=== PATIENT | female | born 1990 | race Two or more races ===

== ENCOUNTER 2019-05-15 19:47 | Emergency (ER) | payer SELFPAY ==
[~2019-05-15] VITALS: Ht 160 cm; Wt 66.7 kg
--- NOTE | 2019-05-15 20:01 | NUR ---
ED Nurse Note: Pt ambulated to ED from home c/o 08/05 Right flank pain that radiates to her kidneys. Pt took 4 over the counter ANNIE pills in the past 4 hours. Pt is A&Ox4
[2019-05-15 20:05] VITALS: BP 105/75
[2019-05-15] MEDS ORDERED: Ketorolac 30mg Inj IV ONE ×2 (20:15)
--- NOTE | 2019-05-15 20:17 | Emergency Room Report ---
History of Present Illness General Chief Complaint: Abdominal Pain Source: Patient Present Illness HPI Patient presents with complaints of acute pain to the right flank mid abdominal area Reports the pain started abruptly Denies any chest pain or shortness of breath denies any vomiting Denies any recent travel or trauma Denies any radiation of the pain patient reports that she had previous kidney problems and liver problems from Workout medication she had taken Allergies: Coded Allergies: PSEUDOEPHEDRINE (Verified Allergy, Unknown, 05/15/19) Patient History Past Medical History: see triage record Pertinent Family History: none Last Menstrual Period: 05/11/19 Now: No : 1 Para: 0 Reviewed Nursing Documentation: PMH: Agreed Nursing Documentation-PMH Past Medical History: No Stated History Review of Systems All Other Systems: negative except mentioned in HPI Physical Exam Vital Signs Date Time Temp Pulse Resp B/P (MAP) Pulse Ox O2 Delivery O2 Flow Rate FiO2 05/15/19 19:51 98.1 107 18 107/70 (82) 97 Room Air Sp02 EP Interpretation: reviewed, normal General Appearance: mild distress - Appears uncomfortable Head: normocephalic, atraumatic Eyes: bilateral eye PERRL, bilateral eye EOMI ENT: hearing grossly normal, normal pharynx, TMs + canals normal, uvula midline Neck: full range of motion, supple, no meningismus, no bony tend Respiratory: lungs clear, normal breath sounds, no rhonchi, no respiratory distress, no retraction, no accessory muscle use Cardiovascular #1: normal peripheral pulses, regular rate, rhythm, no edema, no gallop, no JVD, no murmur Gastrointestinal: normal bowel sounds, non tender, soft, no mass, no organomegaly, non-distended, no guarding, no hernia, no pulsatile mass, no rebound Genitourinary: no CVA tenderness Musculoskeletal: normal inspection Neurologic: oriented x3, responsive, exterior work helper III-XII nml as tested, motor strength/ tone normal, sensory intact Psychiatric: mood/affect normal Skin: normal color, no rash, warm/dry, palpation normal Lymphatic: normal inspection, no adenopathy Medical Decision Making Diagnostic Impression: Primary Impression: Pyelonephritis ER Course With the patient's history and examination, multiple differentials considered, including but not limited to , ectopic , ovarian torsion, gastritis, cholecystitis, pancreatitis, appendicitis Patient's urine sample shows significant infectious pathology Given the discomfort imaging was also obtained does not show any obvious acute pathology Given the location of pain in the patient's findings likely early pyelonephritis patient otherwise is healthy tolerating oral intake and will have initial conservative outpatient trial Labs Test 05/15/19 20:00 05/15/19 20:12 Urine Color [place] Urine Appearance Cloudy Urine pH 7 (4.5-8.0) Urine Specific [place] 1.010 (1.005-1.035) Urine Protein 2+ (NEGATIVE) Urine Glucose (UA) Negative (NEGATIVE) Urine Ketones Negative (NEGATIVE) Urine Blood 4+ (NEGATIVE) Urine Nitrite Positive (NEGATIVE) Urine Bilirubin 2+ (NEGATIVE) Urine Ictotest Negative (NEGATIVE) Urine Urobilinogen 8 MG/DL (0.0-1.0) Urine Leukocyte Esterase 3+ (NEGATIVE) Urine RBC 5-10 /HPF (0 - 2) Urine WBC Tntc /HPF (0 - 2) Urine Squamous Epithelial Cells Few /LPF (NONE/OCC) Urine Bacteria Moderate /HPF (NONE) Urine HCG, Qualitative Negative (NEGATIVE) White Blood Count 9.9 K/UL (4.8-10.8) Red Blood Count 4.02 M/UL (4.20-5.40) Hemoglobin 13.7 G/DL (12.0-16.0) Hematocrit 37.0 % (37.0-47.0) Mean Corpuscular Volume 92 FL (80-99) Mean Corpuscular Hemoglobin 34.0 PG (27.0-31.0) Mean Corpuscular Hemoglobin Concent 36.9 G/DL (32.0-36.0) Red Cell Distribution Width 10.3 % (11.6-14.8) Platelet Count 233 K/UL (150-450) Mean Platelet Volume 6.8 FL (6.5-10.1) Neutrophils (%) (Auto) 60.0 % (45.0-75.0) Lymphocytes (%) (Auto) 29.1 % (20.0-45.0) Monocytes (%) (Auto) 7.7 % (1.0-10.0) Eosinophils (%) (Auto) 2.3 % (0.0-3.0) Basophils (%) (Auto) 0.9 % (0.0-2.0) Sodium Level 136 MMOL/L (136-145) Potassium Level 3.9 MMOL/L (3.5-5.1) Chloride Level 102 MMOL/L (98-107) Carbon Dioxide Level 26 MMOL/L (21-32) Anion Gap 8 mmol/L (5-15) Blood Urea Nitrogen 12 mg/dL (7-18) Creatinine 1.0 MG/DL (0.55-1.30) Estimat Glomerular Filtration Rate > 60 mL/min (>60) Glucose Level 107 MG/DL (74-106) Calcium Level 9.1 MG/DL (8.5-10.1) Total Bilirubin 0.3 MG/DL (0.2-1.0) Aspartate Amino Transf (AST/SGOT) 17 U/L (15-37) Alanine Aminotransferase (ALT/SGPT) 22 U/L (12-78) Alkaline Phosphatase 61 U/L (46-116) Total Protein 7.0 G/DL (6.4-8.2) Albumin 3.8 G/DL (3.4-5.0) Globulin 3.2 g/dL Albumin/Globulin Ratio 1.2 (1.0-2.7) Lipase 110 U/L (73-393) CT/MRI/US Diagnostic Results CT/MRI/US Diagnostic Results : Impression CT abdomen pelvisCT ABDOMEN + PELVIS Without Contrast: Contracted gallbladder. No calcified gallstones. Stomach is distended with ingested material which may be related to a recent meal. Normal appendix. No bowel obstruction or inflammation. Punctate nonobstructing left renal stones. No hydronephrosis or ureteral stone. Small splenule. Small fat-containing umbilical hernia. Bladder wall thickening is nonspecific. Please correlate with urinalysis to evaluate for cystitis. Mildly prominent mesenteric lymph nodes are nonspecific but may be reactive. Follicles in the ovaries. Last Vital Signs Date Time Temp Pulse Resp B/P (MAP) Pulse Ox O2 Delivery O2 Flow Rate FiO2 05/15/19 19:51 98.1 107 18 107/70 (82) 97 Room Air Status: improved Disposition: HOME, SELF-CARE Condition: Improved Scripts Ibuprofen* (MOTRIN*) 600 Mg Tablet 600 MG ORAL Q8H PRN for For Pain, #20 TAB 0 Refills Prov: Colby Jack DO 05/15/19 Phenazopyridine Hcl* (PYRIDIUM*) 100 Mg Tablet 100 MG ORAL THREE TIMES A DAY for 5 Days, TAB Prov: Colby Jack DO 05/15/19 Cephalexin* (KEFLEX*) 500 Mg Capsule 500 MG ORAL EVERY 6 HOURS for 7 Days, CAP Prov: Colby Jack DO 05/15/19 Additional Instructions: Patient is provided with the discharge instructions notified to follow up with primary doctor in the next 2-3 days otherwise return to the er with any worsening symptoms. Please note that this report is being documented using [employer] technology. This can lead to erroneous entry secondary to incorrect interpretation by the dictating instrument. Colby Jack DO May 15, 2019 20:17
[2019-05-15 20:34] LABS: APPEARANCE,URINE CLOUDY; BILIRUBIN, URINE 2+ (NEGATIVE); GLUCOSE, URINE (UA) NEGATIVE (NEGATIVE); KETONES,URINE NEGATIVE (NEGATIVE); LEUKOCYTE ESTERASE ,URINE 3+ (NEGATIVE); NITRITE,URINE POSITIVE (NEGATIVE); PH,URINE 7 (4.5-8.0); PROTEIN,URINE 2+ (NEGATIVE); UROBILINOGEN,URINE 8 MG/DL (0.0-1.0)
[2019-05-15 20:38] LABS: COLOR,URINE ORANGE
[2019-05-15 20:42] LABS: BASOPHILS % (AUTO) 0.9 % (0.0-2.0); EOSINOPHILS % (AUTO) 2.3 % (0.0-3.0); HEMOGLOBIN 13.7 G/DL (12.0-16.0); LYMPHOCYTES % (AUTO) 29.1 % (20.0-45.0); MEAN CORPUSCULAR VOLUME 92 FL (80-99); MONOCYTES % (AUTO) 7.7 % (1.0-10.0); PLATELET COUNT 233 K/UL (150-450); RED BLOOD COUNT 4.02 M/UL (4.20-5.40); RED CELL DISTRIBUTION WIDTH 10.3 % (11.6-14.8); WHITE BLOOD COUNT 9.9 K/UL (4.8-10.8)
[2019-05-15] MEDS ORDERED: cefTRIAXone 1 GM in NS 55 ML IVPB ONE (20:45)
--- NOTE | 2019-05-15 20:50 | NUR ---
ED Nurse Note: Pt off the floor to CT
[2019-05-15 20:59] LABS: ANION GAP 8 mmol/L (5-15); BLOOD UREA NITROGEN 12 mg/dL (7-18); CALCIUM 9.1 MG/DL (8.5-10.1); CARBON DIOXIDE 26 MMOL/L (21-32); CHLORIDE 102 MMOL/L (98-107); POTASSIUM 3.9 MMOL/L (3.5-5.1); SODIUM 136 MMOL/L (136-145)
[2019-05-15 21:03] LABS: ALANINE AMINOTRANSFERASE 22 U/L (12-78); ALBUMIN 3.8 G/DL (3.4-5.0); ALBUMIN/GLOBULIN RATIO 1.2 (1.0-2.7); ALKALINE PHOSPHATASE 61 U/L (46-116); ASPARTATE AMINO TRANSFERASE 17 U/L (15-37); BILIRUBIN,TOTAL 0.3 MG/DL (0.2-1.0)
[2019-05-15] MEDS ORDERED: CEPHALEXIN500 MG ORAL (21:35)
[2019-05-15] MEDS ORDERED: PHENAZOPYRIDIN100 MG ORAL (21:35)
[2019-05-15] MEDS ORDERED: IBUPROFEN600 MG ORAL (21:35)
--- NOTE | 2019-05-15 22:19 | Diagnostic Imaging Report ---
CT ABDOMEN + PELVIS Without Contrast: Contracted gallbladder. No calcified gallstones. Stomach is distended with ingested material which may be related to a recent meal. Normal appendix. No bowel obstruction or inflammation. Punctate nonobstructing left renal stones. No hydronephrosis or ureteral stone. Small splenule. Small fat-containing umbilical hernia. Bladder wall thickening is nonspecific. Please correlate with urinalysis to evaluate for cystitis. Mildly prominent mesenteric lymph nodes are nonspecific but may be reactive. Follicles in the ovaries.
--- NOTE | 2019-05-15 22:26 | NUR ---
ER DISCHARGE NOTE: Patient is cleared to be discharged per ERMD, pt is aox4, on room air, with stable vital signs. pt was given dc and prescription instructions, pt was able to verbalize understanding, pt id band and iv site removed without complications. pt is able to ambulate with steady gait. pt took all belongings.
[2019-05-15 22:27] VITALS: BP 139/86
== END 2019-05-15 22:27 | disposition home or self-care (01) ==
LOC: EMR 20:27
DX: N12 Tubulo-interstitial nephritis, not specified as acute or chronic (principal); Z88.8 Allergy status to other drugs, medicaments and biological substances
CPT/HCPCS: 36415; 74176; 80053; 81003; 81025; 83690; 85025; 87086; 87181; 96361; 96365; 96375; 99284; J0696; J1885

== ENCOUNTER 2019-08-05 13:56 | Emergency (ER) | payer SELFPAY ==
[~2019-08-05] VITALS: Ht 160 cm; Wt 68.0 kg
[~2019-08-05 13:56] MED LIST: CEPHALEXIN500 MG ORAL; IBUPROFEN600 MG ORAL; PHENAZOPYRIDIN100 MG ORAL
[2019-08-05] MEDS ORDERED: NKM (14:06)
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
[2019-08-05 14:30] VITALS: BP 113/70
[2019-08-05] MEDS ORDERED: Tetanus/Diptheria/Pertussis IM ONE (14:30)
[2019-08-05] MEDS ORDERED: HYDROcodone/Acetamin 5/325 tab PO ONE (14:30)
--- NOTE | 2019-08-05 14:54 | NUR ---
ED Nurse Note: Ct complete
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
[2019-08-05] MEDS ORDERED: Lidocaine 1% Plain 30 ml INJ ONE (15:45)
[2019-08-05] MEDS ORDERED: Neosporin Oint Ud Pkt TOPIC ONE ×2 (16:14→16:30)
[2019-08-05] MEDS ORDERED: ACETAMINOPHEN-1 EAC1 ORAL (16:17)
[2019-08-05] MEDS ORDERED: BACITRACIN15 GM TOPIC (16:17)
[2019-08-05 16:20] VITALS: BP 124/68
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
== END 2019-08-05 16:20 | disposition home or self-care (01) ==
LOC: EMR 14:50
DX: S01.511A Laceration without foreign body of lip, initial encounter (principal); S00.83XA Contusion of other part of head, initial encounter; Z23 Encounter for immunization; V13.4XXA Pedal cycle driver injured in collision with car, pick-up truck or van in traffic accident, initial encounter; Y92.410 Unspecified street and highway as the place of occurrence of the external cause
CPT/HCPCS: 12011; 70450; 70486; 90471; 90715; 99284; J2001